=== PATIENT | female | born 1965 | race Caucasian/White ===

== ENCOUNTER 2022-10-15 17:46 | Emergency (ER) | payer BC, OTHER ==
[2022-10-15] MEDS ORDERED: Ketorolac Tromethamine 30 MG/ML VIAL ONE (19:06)
[2022-10-15] MEDS ORDERED: Dexamethasone 4 mg/ml Vial ONE (19:06)
[2022-10-15] MEDS ORDERED: Ondansetron PF 4 MG/2 ML Vial ONE (19:06)
== END 2022-10-15 20:24 | disposition home or self-care (01) ==
LOC: CSHERS 17:46
DX: M54.6 Pain in thoracic spine (principal); E78.00 Pure hypercholesterolemia, unspecified; Z86.73 Personal history of transient ischemic attack (TIA), and cerebral infarction without residual deficits
CPT/HCPCS: 72128; 72131; 85652; 86140; 96374; 96375; J1100; J1885; J2405

== ENCOUNTER 2023-10-18 12:33 | Outpatient (CLI) | payer OTHER ==
[2023-10-18 13:30] LABS: Hematocrit 40.2 % (34.9-44.5); Hemoglobin 13.3 g/dL (12.0-15.5); Mean Corpuscular HGB CONC 33.1 g/dL (32.0-36.0); Mean Corpuscular Hemoglobin 30.9 pg (27.0-33.0); Mean Corpuscular Volume 93.5 fl (81.6-98.3); Mean Platelet Volume 11.3 fl (7.4-10.4); Platelet Count 223 10x3/uL (150-450); RBC Distribution Width 12.9 % (11.5-14.5); White Blood Cell (WBC) Count 7.9 10x3/uL (3.5-10.5)
== END 2023-10-18 12:34 | disposition home or self-care (01) ==
LOC: CSHLAB 12:33
PROVIDERS: ATTEND Podiatrist Foot & Ankle Surgery
DX: Z01.812 Encounter for preprocedural laboratory examination (principal); M76.61 Achilles tendinitis, right leg
CPT/HCPCS: 85027

== ENCOUNTER 2023-11-06 07:54 | Day surgery (SDC) | payer OTHER ==
[2023-10-18 12:59] VITALS: BMI 38.9
[2023-11-06] MEDS ORDERED: Midazolam HCl 2 mg/2 ml Vial ONE (08:52)
[2023-11-06] MEDS ORDERED: PROPOFOL 20 ML ONE (08:52)
[2023-11-06] MEDS ORDERED: SUGAMMADEX SODIUM 200 MG/2 ML VIAL ONE (08:52)
[2023-11-06] MEDS ORDERED: Fentanyl 250 MCG/5 ML VIAL ONE (08:52)
[2023-11-06] MEDS ORDERED: Lidocaine 1% PF 5 ML VIAL ONE (08:53)
[2023-11-06] MEDS ORDERED: Dexamethasone 4 mg/ml Vial ONE (08:53)
[2023-11-06] MEDS ORDERED: Rocuronium Bromide 10 MG/ML (10ML VIAL) ONE (08:53)
[2023-11-06] MEDS ORDERED: Ondansetron PF 4 MG/2 ML Vial ONE (08:53)
[2023-11-06] MEDS ORDERED: Lidocaine 4% PF 5 ML AMP ONE ×2 (08:58→09:03)
[2023-11-06] MEDS ORDERED: CEFAZOLIN 2 GM VIAL ONE (09:04)
[2023-11-06] MEDS ORDERED: Bupivacaine PF 0.5% 30 ML VIAL ONE (09:05)
[2023-11-06] MEDS ORDERED: Promethazine HCl 25 MG/ML VIAL IM PRN (09:45)
[2023-11-06] MEDS ORDERED: Zolpidem Tartrate 5 MG TAB PO PRN (09:45)
[2023-11-06] MEDS ORDERED: Ropivacaine 0.2% 550 ML 550 ML NERVE BLCK SCH (09:45)
[2023-11-06] MEDS ORDERED: Ondansetron PF 4 MG/2 ML Vial IVP PRN (09:45)
[2023-11-06] MEDS ORDERED: PHENYLEPHRINE-NS 100 MCG/ML 10 ML SYRINGE ONE ×2 (10:02→10:44)
[2023-11-06] MEDS ORDERED: ePHEDrine Sulfate 50 MG/10 ML VIAL ONE (10:43)
[2023-11-06] MEDS ORDERED: fentaNYL 50 mcg/mL 1 mL Vial ONE (12:28)
[2023-11-06] MEDS ORDERED: oxyCODONE 5 MG TAB ONE (13:17)
== END 2023-11-06 14:50 | disposition home or self-care (01) ==
LOC: CSHSDC 07:54
PROVIDERS: ATTEND Podiatrist Foot & Ankle Surgery
PROC: 0QTL0ZZ Resection of Right Tarsal, Open Approach (ICD-10-PCS; principal; 2023-11-06)
PROC: 0LMS0ZZ Reattachment of Right Ankle Tendon, Open Approach (ICD-10-PCS; principal; 2023-11-06)
DX: M76.61 Achilles tendinitis, right leg (principal); M21.6X1 Other acquired deformities of right foot; M92.61 Juvenile osteochondrosis of tarsus, right ankle; Z88.5 Allergy status to narcotic agent
CPT/HCPCS: A4306; C1713; J0665; J1100; J2250; J2405; J2704; J2795; J3010

== ENCOUNTER 2024-02-26 10:17 | Emergency (ER) | payer OTHER ==
[2024-02-26] MEDS ORDERED: Ketorolac Tromethamine 30 MG (1 mL) VIAL ONE (11:43)
== END 2024-02-26 15:29 | disposition home or self-care (01) ==
LOC: CSHERS 10:17
DX: M79.671 Pain in right foot (principal); I10 Essential (primary) hypertension; Z55.6 Problems related to health literacy
CPT/HCPCS: 96372; 99283; J1885

== ENCOUNTER 2024-03-23 12:51 | Outpatient (CLI) | payer OTHER | END 2024-03-23 12:52 | disposition home or self-care (01) | LOC: CSHWCC 12:51 | PROVIDERS: ATTEND Nurse Practitioner Family | DX: L89.613 Pressure ulcer of right heel, stage 3 (principal) | CPT/HCPCS: 11042; 99213; G0463 ==

== ENCOUNTER 2024-03-25 09:41 | Outpatient (CLI) | payer OTHER | END 2024-03-25 09:42 | disposition home or self-care (01) | LOC: CSHWCC 09:41 | PROVIDERS: ATTEND Nurse Practitioner Family | DX: L89.613 Pressure ulcer of right heel, stage 3 (principal) | CPT/HCPCS: 99213; G0463 ==

== ENCOUNTER 2024-04-07 15:29 | Outpatient (CLI) | payer OTHER | END 2024-04-07 15:30 | disposition home or self-care (01) | LOC: CSHWCC 15:29 | PROVIDERS: ATTEND Nurse Practitioner Family | DX: L89.613 Pressure ulcer of right heel, stage 3 (principal) | CPT/HCPCS: 11042; 99212; G0463 ==

== ENCOUNTER 2024-04-21 15:18 | Outpatient (CLI) | payer OTHER | END 2024-04-21 15:19 | disposition home or self-care (01) | LOC: CSHWCC 15:18 | PROVIDERS: ATTEND Nurse Practitioner Family | DX: L89.613 Pressure ulcer of right heel, stage 3 (principal) | CPT/HCPCS: 11042 ==

== ENCOUNTER 2024-04-28 14:58 | Outpatient (CLI) | payer OTHER | END 2024-04-28 14:59 | disposition home or self-care (01) | LOC: CSHWCC 14:58 | PROVIDERS: ATTEND Nurse Practitioner Family | DX: L89.613 Pressure ulcer of right heel, stage 3 (principal) | CPT/HCPCS: 11042 ==

== ENCOUNTER 2024-05-21 13:04 | Outpatient (CLI) | payer OTHER | END 2024-05-21 13:05 | disposition home or self-care (01) | LOC: CSHWCC 13:04 | PROVIDERS: ATTEND Nurse Practitioner Family | DX: L89.613 Pressure ulcer of right heel, stage 3 (principal) | CPT/HCPCS: 11042 ==

== ENCOUNTER 2025-01-22 15:19 | Outpatient (CLI) | payer MEDICARE | END 2025-01-22 15:20 | disposition home or self-care (01) | LOC: CSHRAD 15:19 | PROVIDERS: ATTEND Student in an Organized Health Care Education/Training Program | DX: M25.552 Pain in left hip (principal) ==